=== PATIENT | female | born 1990 | race Caucasian/White ===

== ENCOUNTER 2022-04-16 10:12 | Day surgery (SDC) | payer BC ==
[~2022-04-16 10:12] MED LIST: ceFAZolin SODIUM 1 GM VIAL IVPB ONE
[2022-04-16 10:17] VITALS: BMI 23.3
[2022-04-16 11:18] LABS: BASO % 0.9 % (0-2.0); EOS % 2.8 % (0-4.5); HEMATOCRIT 35.3 % (32.4-45.2); HEMOGLOBIN 11.3 GM/dL (10.7-15.3); LYMPH % 27.4 % (8-40); MCH 23.4 pg (25.7-33.7); MCHC 31.9 g/dl (32.0-36.0); MEAN CELL VOLUME 73.4 fl (80-96); MEAN PLT VOLUME 7.8 fl (7.5-11.1); MONO % 6.9 % (3.8-10.2); PLATELET COUNT 327 10^3/uL (134-434); RBC 4.81 M/mm3 (3.60-5.2); WHITE BLOOD COUNT 6.5 K/mm3 (4.0-10.0)
[2022-04-16 11:47] LABS: CALCIUM 8.8 mg/dL (8.5-10.1)
[2022-04-16 11:51] LABS: CREATININE 0.5 mg/dL (0.55-1.3)
[2022-04-16 11:52] LABS: BILIRUBIN,TOTAL 0.9 mg/dL (0.2-1); TOT PROT 6.6 g/dl (6.4-8.2)
[2022-04-16 14:27] VITALS: RESP 18
[2022-04-16] MEDS ORDERED: MIDAZOLAM HCL 2 MG/2 ML SINGLE DOSE VIAL ONE (15:48)
[2022-04-16] MEDS ORDERED: ONDANSETRON 4 MG/2 ML VIAL IVPUSH PRN (16:02)
[2022-04-16] MEDS ORDERED: oxyCODONE HCL 5 MG TABLET PO PRN (16:02)
[2022-04-16] MEDS ORDERED: ACETAMINOPHEN 1000 MG/100 ML BAG IVPB PRN (16:03)
[2022-04-16] MEDS ORDERED: DEXAMETHASONE SOD PHOSPHATE 4 MG/1 ML VIAL ONE (16:09)
[2022-04-16] MEDS ORDERED: ONDANSETRON 4 MG/2 ML VIAL ONE (16:09)
[2022-04-16] MEDS ORDERED: ceFAZolin SODIUM 1 GM VIAL ONE (16:09)
[2022-04-16] MEDS ORDERED: ceFAZolin SODIUM 1 GM VIAL IVPB ONE (16:11)
[2022-04-16] MEDS ORDERED: LACTATED RINGERS SOLUTION 1,000 ML IV SCH (16:15)
[2022-04-16] MEDS ORDERED: KETOROLAC TROMETHAMINE 30 MG/1 ML VIAL ONE (16:21)
[2022-04-16 19:40] VITALS: BP 106/67; PULSE 75; TEMP 98.7
== END 2022-04-16 18:15 | disposition home or self-care (01) ==
LOC: JASU-SURG 10:12
PROVIDERS: ATTEND Obstetrics & Gynecology
PROC: 10D17ZZ Extraction of Products of Conception, Retained, Via Natural or Artificial Opening (ICD-10-PCS; principal; 2022-04-16 16:00)
DX: O02.1 Missed abortion (principal)
CPT/HCPCS: 36415; 76998-TC; 80053; 84702; 85025; 86850; 86900; 86901; 88305-TC; 94760; C9803-CS; U0003; U0005

== ENCOUNTER 2023-05-16 07:08 | Inpatient (IN) | payer BC ==
[2023-05-16] MEDS: ELECTROLYTE-148 SOLN 1,000 ML IV SCH (09:00)
[2023-05-16 09:17] LABS: BASO % 0.7 % (0-2.0); EOS % 2.6 % (0-4.5); HEMATOCRIT 33.1 % (32.4-45.2); HEMOGLOBIN 10.9 GM/dL (10.7-15.3); LYMPH % 16.1 % (8-40); MCH 24.8 pg (25.7-33.7); MEAN CELL VOLUME 75.2 fl (80-96); MEAN PLT VOLUME 8.5 fl (7.5-11.1); MONO % 4.9 % (3.8-10.2); NEUT % 75.7 % (42.8-82.8); PLATELET COUNT 261 10^3/uL (134-434); RBC 4.41 M/mm3 (3.60-5.2); RDW 14.4 % (11.6-15.6); WHITE BLOOD COUNT 12.3 K/mm3 (4.0-10.0)
[2023-05-16 09:25] LABS: INR 0.92 (0.83-1.09); PROTHROMBIN TIME (PATIENT) 10.7 SEC (9.7-13.0)
[2023-05-16 09:28] LABS: ACTIVATED PTT 26.9 SECONDS (25.2-36.5)
[2023-05-16 09:37] LABS: POTASSIUM 3.7 mmol/L (3.5-5.1)
[2023-05-16 09:38] LABS: CALCIUM 8.4 mg/dL (8.5-10.1)
[2023-05-16 09:42] LABS: CREATININE 0.4 mg/dL (0.55-1.3)
[2023-05-16 11:20] VITALS: BMI 28.5
[2023-05-16] MEDS ORDERED: OXYTOCIN 30 UNITS in 0.9% NS 30 UNIT/500 ML INFUS.BAG IVPB ONE (12:07)
[2023-05-16] MEDS: OXYTOCIN 30 UNITS in 0.9% NS 30 UNIT/500 ML INFUS.BAG IVPB SCH (12:10)
[2023-05-16 12:33] LABS: HIV INTERPRETATION NEGATIVE (NEGATIVE)
[2023-05-16] MEDS ORDERED: FENTANYL/BUPIVACAINE/NS/PF - PCEA - 50 ML DISP.SYRIN EP ONE ×2 (18:10→21:50)
[2023-05-16] MEDS ORDERED: LIDO 2%/EPI 1:200000 PRESRVFRE (20 ML SDVIAL) ONE (18:13)
[2023-05-16] MEDS ORDERED: BUPIVACAINE HCL/PF 0.25% (2.5MG/ML) 10 ML VIAL ONE (18:13)
[2023-05-16] MEDS: FENTANYL/BUPIVACAINE/NS/PF - PCEA - 50 ML DISP.SYRIN EP SCH (18:35)
[2023-05-16] MEDS ORDERED: NALOXONE HCL 0.4 MG/ML VIAL IVPUSH PRN (18:43)
[2023-05-17] MEDS ORDERED: METOCLOPRAMIDE HCL INJECTION 10 MG/2 ML VIAL ONE (01:33)
[2023-05-17] MEDS: METOCLOPRAMIDE HCL INJECTION 10 MG/2 ML VIAL IVPUSH ONE (01:40)
[2023-05-17] MEDS ORDERED: ONDANSETRON 4 MG/2 ML VIAL IVPUSH PRN (01:58)
[2023-05-17] MEDS ORDERED: ceFAZolin SODIUM 1 GM VIAL ONE (02:00)
[2023-05-17] MEDS ORDERED: FENTANYL CITRATE/PF 50 MCG/ML VIAL ONE (02:00)
[2023-05-17] MEDS ORDERED: BUPIVACAINE HCL/PF 0.5% (5MG/ML) 10 ML VIAL ONE (02:01)
[2023-05-17] MEDS ORDERED: ONDANSETRON 4 MG/2 ML VIAL ONE (02:16)
[2023-05-17] MEDS ORDERED: OXYTOCIN 10 UNITS/ML VIAL ONE ×2 (02:25→03:20)
[2023-05-17] MEDS ORDERED: morphine SULFATE/PF 1 MG/2 ML (2cc Syringe - QUVA) ONE (02:35)
[2023-05-17 03:22] LABS: CORD HCO3 22.7 mmHg (20-29); CORD pH 7.241 (7.14-7.44)
[2023-05-17 03:25] LABS: CORD BASE EXCESS -1.8 mmol/L (0-2); CORD HCO3 24.8 mmHg (20-29); CORD PCO2 49.1 mmHg (30-78); CORD pH 7.322 (7.14-7.44)
[2023-05-17] MEDS ORDERED: METHYLERGONOVINE MALEATE 0.2 MG/1 ML AMP IM PRN (03:27)
[2023-05-17] MEDS ORDERED: BENZOCAINE 20% 57 GM BOTTLE TP PRN (03:27)
[2023-05-17] MEDS ORDERED: IBUPROFEN 800 MG/8 ML IJ IVPB PRN (03:27)
[2023-05-17] MEDS ORDERED: WITCH HAZEL 50% (TUCKS) 40 PAD/JAR PAD TP PRN (03:27)
[2023-05-17] MEDS ORDERED: BENZOCAINE 28 GM HEMORRHOIDAL OINTMENT TP PRN (03:27)
[2023-05-17] MEDS ORDERED: ACETAMINOPHEN 325 MG TABLET (FP) PO PRN (03:27)
[2023-05-17] MEDS: OXYTOCIN 20 UNITS in 0.9% NS 20 UNIT/1,000 ML INFUS.BAG IV SCH (03:35)
[2023-05-17] MEDS: PRENATAL VITAMINS W/ FOLIC ACID TABLET (FP) PO SCH (10:03)
[2023-05-17] MEDS: IBUPROFEN 600 MG TABLET (FP) PO PRN (10:04)
[2023-05-17] MEDS ORDERED: oxyCODONE HCL 5 MG TABLET PO PRN ×2 (15:28)
[2023-05-17] MEDS: DIPHTH,PERTUSS(ACELL),TET 0.5 ML DISP.SYRIN IM ONE (16:35)
[2023-05-17] MEDS: SIMETHICONE 80 MG TAB.CHEW (FP) PO PRN (20:33)
[2023-05-17] MEDS: SENNOSIDES/DOCUSATE COMBO (SENNA PLUS) TABLET (UD) PO PRN (21:50)
[2023-05-18] MEDS ORDERED: BISACODYL 10 MG SUPP.RECT RC PRN (03:28)
[2023-05-18 06:51] LABS: BASO % 0.7 % (0-2.0); EOS % 3.6 % (0-4.5); HEMATOCRIT 29.5 % (32.4-45.2); HEMOGLOBIN 9.7 GM/dL (10.7-15.3); LYMPH % 18.8 % (8-40); MCH 24.9 pg (25.7-33.7); MCHC 32.9 g/dl (32.0-36.0); MEAN CELL VOLUME 75.7 fl (80-96); MEAN PLT VOLUME 8.6 fl (7.5-11.1); MONO % 6.4 % (3.8-10.2); NEUT % 70.5 % (42.8-82.8); PLATELET COUNT 248 10^3/uL (134-434); RDW 14.3 % (11.6-15.6); WHITE BLOOD COUNT 11.2 K/mm3 (4.0-10.0)
[2023-05-18] MEDS: FERROUS SO4 325 MG TABLET (FP) PO SCH (11:07)
[2023-05-19 12:05] VITALS: BP 112/72; PULSE 77; RESP 17; TEMP 97.9
== END 2023-05-19 20:39 | disposition home or self-care (01) | DRG 788 ==
LOC: JLDR 07:08 → J3W 05-17 04:58
PROVIDERS: ADMIT Obstetrics & Gynecology; ATTEND Obstetrics & Gynecology
PROC: 0U7C7ZZ Dilation of Cervix, Via Natural or Artificial Opening (ICD-10-PCS; 2023-05-16)
PROC: 10907ZC Drainage of Amniotic Fluid, Therapeutic from Products of Conception, Via Natural or Artificial Opening (ICD-10-PCS; 2023-05-16)
PROC: 10D00Z1 Extraction of Products of Conception, Low, Open Approach (ICD-10-PCS; principal; 2023-05-17)
DX: O36.5930 Maternal care for other known or suspected poor fetal growth, third trimester, not applicable or unspecified (principal); O62.0 Primary inadequate contractions; Z3A.37 37 weeks gestation of pregnancy; Z37.0 Single live birth
CPT/HCPCS: 36415; 36600; 80048; 82803; 85025; 85610; 85730; 86780; 86850; 86900; 86901; 87389; 90715